=== PATIENT | female | born 1995 | race Asian ===

== ENCOUNTER 2022-04-24 01:09 | Inpatient (IN) | payer OTHER ==
[2022-04-24] VITALS (8 sets, daily range): BP systolic 90–108; BP diastolic 52–58
[~2022-04-24] VITALS: Ht 154.9 cm; Wt 54.1 kg
[2022-04-24] MEDS ORDERED: SODIUM CHLORIDE 0.9% 1,000 ML IV ONE ×2 (02:30→04:00)
[2022-04-24 02:47] LABS: CHLORIDE 109 mEq/L (98-107)
[2022-04-24 02:49] LABS: PROTHROMBIN TIME 11.1 sec (9.6-11.0)
[2022-04-24 03:01] LABS: BASOPHILS % 0.4 % (0.0-2.0); EOSINOPHILS % 0.1 % (0.0-5.0); HEMATOCRIT. 25.3 % (36.0-48.0); HEMOGLOBIN. 8.5 g/dL (12.0-16.0); LYMPHOCYTES % 21.2 % (20.0-50.0); MEAN CORPUSCULAR VOLUME 89.5 fL (81.0-99.0); MEAN PLATELET VOLUME 8.9 fl (7.4-10.4); MONOCYTES % 4.5 % (2.0-8.0); NEUTROPHILS % 73.8 % (40.0-76.0); PLATELET 299 x1000/uL (130-400); RED BLOOD CELL COUNT 2.82 mill/uL (4.2-5.4); RED CELL DISTRIBUTION WIDTH 12.5 % (11.6-14.6)
[2022-04-24 03:04] LABS: B-HCG QUANTITATIVE < 1 mIU/mL (<3)
[2022-04-24 05:07] LABS: HEMATOCRIT 18.3 % (36.0-48.0)
[2022-04-24 05:24] LABS: CLARITY URINE TURBID (CLEAR); COLOR URINE BLOODY (YELLOW)
[2022-04-24 05:25] LABS: KETONES URINE 1+ (NEGATIVE); OCCULT BLOOD URINE 3+ (NEGATIVE); PROTEIN URINE 2+ (NEGATIVE)
[2022-04-24 05:26] LABS: NITRITE URINE NEGATIVE (NEGATIVE); UROBILINOGEN URINE 0.2 E.U./dL (0.2-1.0)
[2022-04-24 05:27] LABS: LEUKOCYTE ESTERASE URINE NEGATIVE (NEGATIVE)
[2022-04-24] MEDS ORDERED: ESTROGENS,CONJUGATED 25MG/VIAL IV NR (08:00)
[2022-04-24] MEDS ORDERED: CEFTRIAXONE 1 G PREMIX 50 ML IV SCH (09:00)
[2022-04-24] MEDS: CEFTRIAXONE 1,000 MG in DEXTROSE 5% WATER 50 ML IV SCH ×2 (11:00→15:53)
[2022-04-24 15:19] LABS: HEMATOCRIT 25.8 % (36.0-48.0)
[2022-04-24 15:24] LABS: HEMOGLOBIN 8.6 g/dL (12.0-16.0)
[2022-04-24] MEDS: DOCUSATE SODIUM 250MG CAPSULE PO SCH (15:52)
[2022-04-24] MEDS: ACETAMINOPHEN 325MG TABLET PO PRN (15:52)
[2022-04-24] MEDS: FERROUS SULFATE 325MG TABLET PO SCH (16:54)
[2022-04-25] VITALS (16 sets, daily range): BP systolic 89–119; BP diastolic 47–64
[2022-04-25 06:59] LABS: BASOPHILS % 0.9 % (0.0-2.0); EOSINOPHILS % 1.1 % (0.0-5.0); HEMATOCRIT. 21.8 % (36.0-48.0); HEMOGLOBIN. 7.4 g/dL (12.0-16.0); LYMPHOCYTES % 43.7 % (20.0-50.0); MEAN CORPUSCULAR HEMOGLOBIN 29.9 pg (28.0-32.0); MEAN CORPUSCULAR VOLUME 88.6 fL (81.0-99.0); MEAN PLATELET VOLUME 8.6 fl (7.4-10.4); MONOCYTES % 8.8 % (2.0-8.0); NEUTROPHILS % 45.5 % (40.0-76.0); PLATELET 213 x1000/uL (130-400); RED BLOOD CELL COUNT 2.46 mill/uL (4.2-5.4); RED CELL DISTRIBUTION WIDTH 15.5 % (11.6-14.6)
[2022-04-25 07:04] LABS: CHLORIDE 114 mEq/L (98-107)
[2022-04-25] MEDS: DOCUSATE SODIUM 250MG CAPSULE PO SCH (08:41)
[2022-04-25] MEDS: FERROUS SULFATE 325MG TABLET PO SCH ×3 (08:41→16:22)
[2022-04-25] MEDS: ONDANSETRON HCL 4MG/2ML INJ IV PRN (11:01)
[2022-04-25 16:41] LABS: HEMOGLOBIN 7.8 g/dL (12.0-16.0)
[2022-04-25] MEDS ORDERED: SODIUM CHLORIDE 0.9% 500 ML IV NR (19:30)
[2022-04-25] MEDS ORDERED: ONDANSETRON HCL 4MG/2ML INJ IV NR (21:15)
[2022-04-25] MEDS ORDERED: ESTROGENS,CONJUGATED 25MG/VIAL IV NR ×2 (21:15→21:30)
[2022-04-25 23:31] LABS: HEMATOCRIT 20.1 % (36.0-48.0); HEMOGLOBIN 6.7 g/dL (12.0-16.0)
[2022-04-26] VITALS (17 sets, daily range): BP systolic 91–108; BP diastolic 50–75
[2022-04-26] MEDS: ACETAMINOPHEN 325MG TABLET PO PRN ×2 (00:08→21:47)
[2022-04-26] MEDS: FERROUS SULFATE 325MG TABLET PO SCH ×3 (08:57→17:02)
[2022-04-26] MEDS: DOCUSATE SODIUM 250MG CAPSULE PO SCH (08:57)
[2022-04-26 10:03] LABS: BASOPHILS % 0.3 % (0.0-2.0); EOSINOPHILS % 0.2 % (0.0-5.0); HEMATOCRIT. 27.6 % (36.0-48.0); LYMPHOCYTES % 16.5 % (20.0-50.0); MEAN CORPUSCULAR HEMOGLOBIN 29.8 pg (28.0-32.0); MEAN CORPUSCULAR VOLUME 87.9 fL (81.0-99.0); MEAN PLATELET VOLUME 8.4 fl (7.4-10.4); MONOCYTES % 5.7 % (2.0-8.0); NEUTROPHILS % 77.3 % (40.0-76.0); PLATELET 161 x1000/uL (130-400); RED BLOOD CELL COUNT 3.14 mill/uL (4.2-5.4); RED CELL DISTRIBUTION WIDTH 14.9 % (11.6-14.6)
[2022-04-26 10:18] LABS: HEMOGLOBIN. 9.4 g/dL (12.0-16.0)
[2022-04-26 10:32] LABS: CHLORIDE 109 mEq/L (98-107)
[2022-04-26] MEDS: ONDANSETRON HCL 4MG/2ML INJ IV PRN (11:12)
[2022-04-26] MEDS: CEFTRIAXONE 1,000 MG in DEXTROSE 5% WATER 50 ML IV SCH (12:22)
[2022-04-26] MEDS: ESTROGENS,CONJUGATED 1.25MG TABLET PO SCH (12:22)
[2022-04-26 16:06] LABS: HEMATOCRIT 23.1 % (36.0-48.0); HEMOGLOBIN 7.9 g/dL (12.0-16.0)
[2022-04-26] MEDS ORDERED: SODIUM CHLORIDE 0.9% 1,000 ML IV NR (19:00)
[2022-04-27] VITALS (16 sets, daily range): BP systolic 95–111; BP diastolic 61–81
[2022-04-27 02:02] LABS: HEMOGLOBIN 7.4 g/dL (12.0-16.0)
[2022-04-27] MEDS ORDERED: ONDANSETRON 4MG ODT PO PRN (04:00)
[2022-04-27 06:41] LABS: BASOPHILS % 0.2 % (0.0-2.0); EOSINOPHILS % 0.5 % (0.0-5.0); LYMPHOCYTES % 21.9 % (20.0-50.0); MEAN CORPUSCULAR HEMOGLOBIN 30.5 pg (28.0-32.0); MEAN CORPUSCULAR VOLUME 89.7 fL (81.0-99.0); MEAN PLATELET VOLUME 8.5 fl (7.4-10.4); MONOCYTES % 7.8 % (2.0-8.0); NEUTROPHILS % 69.6 % (40.0-76.0); PLATELET 168 x1000/uL (130-400); RED BLOOD CELL COUNT 2.23 mill/uL (4.2-5.4); RED CELL DISTRIBUTION WIDTH 15.2 % (11.6-14.6)
[2022-04-27 06:55] LABS: HEMOGLOBIN. 6.8 g/dL (12.0-16.0)
[2022-04-27 06:56] LABS: CHLORIDE 110 mEq/L (98-107)
[2022-04-27] MEDS: FERROUS SULFATE 325MG TABLET PO SCH ×3 (09:00→18:41)
[2022-04-27] MEDS: ESTROGENS,CONJUGATED 1.25MG TABLET PO SCH (09:00)
[2022-04-27] MEDS: DOCUSATE SODIUM 250MG CAPSULE PO SCH (09:00)
[2022-04-27] MEDS ORDERED: NORE-107 PO ×2 (10:16)
[2022-04-27] MEDS: CEFTRIAXONE 1,000 MG in DEXTROSE 5% WATER 50 ML IV SCH (11:00)
[2022-04-27] MEDS: FAMOTIDINE 20MG TABLET PO SCH ×2 (13:09→21:51)
[2022-04-27] MEDS: ONDANSETRON 4MG ODT SL PRN (21:18)
[2022-04-27] MEDS: BLISOVI FE XX SCH (21:51)
[2022-04-28] VITALS (9 sets, daily range): BP systolic 92–119; BP diastolic 52–67
[2022-04-28] MEDS: ONDANSETRON 4MG ODT SL PRN ×2 (07:02→21:09)
[2022-04-28 07:17] LABS: BASOPHILS % 0.3 % (0.0-2.0); EOSINOPHILS % 0.5 % (0.0-5.0); LYMPHOCYTES % 18.7 % (20.0-50.0); MEAN CORPUSCULAR HEMOGLOBIN 30.9 pg (28.0-32.0); MEAN CORPUSCULAR VOLUME 91.6 fL (81.0-99.0); MEAN PLATELET VOLUME 8.3 fl (7.4-10.4); MONOCYTES % 7.1 % (2.0-8.0); NEUTROPHILS % 73.4 % (40.0-76.0); PLATELET 153 x1000/uL (130-400)
[2022-04-28 07:28] LABS: CHLORIDE 108 mEq/L (98-107)
[2022-04-28 07:45] LABS: HEMATOCRIT. 19.2 % (36.0-48.0); HEMOGLOBIN. 6.5 g/dL (12.0-16.0)
[2022-04-28] MEDS: FERROUS SULFATE 325MG TABLET PO SCH ×3 (08:14→17:10)
[2022-04-28] MEDS: FAMOTIDINE 20MG TABLET PO SCH ×2 (08:16→21:00)
[2022-04-28] MEDS ORDERED: DOCUSATE SODIUM SUGAR FREE 100MG/10ML UDC PO SCH (09:00)
[2022-04-28] MEDS: CEFTRIAXONE 1,000 MG in DEXTROSE 5% WATER 50 ML IV SCH (13:15)
[2022-04-28 17:05] LABS: HEMATOCRIT 17.6 % (36.0-48.0); HEMOGLOBIN 6.1 g/dL (12.0-16.0)
[2022-04-28] MEDS ORDERED: EPOETIN ALFA-EPBX 10,000 UNIT/ML VIAL SUBCUT NR (21:00)
[2022-04-28] MEDS: BLISOVI FE XX SCH (21:45)
[2022-04-29] VITALS (13 sets, daily range): BP systolic 90–105; BP diastolic 47–75
[2022-04-29 08:06] LABS: BASOPHILS % 0.4 % (0.0-2.0); EOSINOPHILS % 0.5 % (0.0-5.0); LYMPHOCYTES % 18.6 % (20.0-50.0); MEAN CORPUSCULAR HEMOGLOBIN 30.1 pg (28.0-32.0); MEAN CORPUSCULAR VOLUME 89.9 fL (81.0-99.0); MEAN PLATELET VOLUME 7.8 fl (7.4-10.4); MONOCYTES % 6.4 % (2.0-8.0); NEUTROPHILS % 74.1 % (40.0-76.0); PLATELET 165 x1000/uL (130-400); RED BLOOD CELL COUNT 2.22 mill/uL (4.2-5.4); RED CELL DISTRIBUTION WIDTH 15.2 % (11.6-14.6)
[2022-04-29 08:14] LABS: HEMOGLOBIN. 6.7 g/dL (12.0-16.0)
[2022-04-29] MEDS: FERROUS SULFATE 325MG TABLET PO SCH ×4 (08:54→17:24)
[2022-04-29] MEDS: FAMOTIDINE 20MG TABLET PO SCH (08:55)
[2022-04-29] MEDS ORDERED: DOCUSATE SODIUM 100MG CAPSULE PO SCH (09:00)
[2022-04-29 09:21] LABS: CHLORIDE 109 mEq/L (98-107)
[2022-04-29 09:28] LABS: HDL CHOLESTEROL 53 mg/dL (40-59); LDL CHOLESTEROL 46 mg/dL (5-100)
[2022-04-29] MEDS ORDERED: DOCU-138 MT (14:03)
[2022-04-29] MEDS ORDERED: NORE-107 PO (14:03)
[2022-04-29] MEDS ORDERED: ONDA4TAB50 MT (14:03)
[2022-04-29 18:28] LABS: HEMATOCRIT 29.1 % (36.0-48.0); HEMOGLOBIN 9.9 g/dL (12.0-16.0)
== END 2022-04-29 19:45 | disposition home or self-care (01) | DRG 872 ==
LOC: ER 01:09 → 8WST 05:45 → ENRESERV 07:32 → 8WST 04-27 08:45
PROVIDERS: ADMIT Internal Medicine; ATTEND Internal Medicine
PROC: 30233N1 Transfusion of Nonautologous Red Blood Cells into Peripheral Vein, Percutaneous Approach (ICD-10-PCS; principal; 2022-04-24)
DX: A41.9 Sepsis, unspecified organism (principal); N39.0 Urinary tract infection, site not specified; N92.0 Excessive and frequent menstruation with regular cycle; D64.9 Anemia, unspecified; I95.1 Orthostatic hypotension; K21.9 Gastro-esophageal reflux disease without esophagitis; S00.80XA Unspecified superficial injury of other part of head, initial encounter; W18.39XA Other fall on same level, initial encounter; Y93.89 Activity, other specified; Y92.091 Bathroom in other non-institutional residence as the place of occurrence of the external cause; Y99.8 Other external cause status; Z91.010 Allergy to peanuts; Z83.3 Family history of diabetes mellitus; Z82.3 Family history of stroke; Z82.49 Family history of ischemic heart disease and other diseases of the circulatory system
CPT/HCPCS: 36415; 76856; 80048; 80053; 80061; 81003; 83036; 84146; 84443; 84702; 85014; 85018; 85025; 86850; 86900; 86920; 97110; 97162; 97166; 99285; J0696; J0885; J1410; J2405; J7030; J7060; P9016; Q0162